=== PATIENT | male | born 1965 | race Caucasian/White ===

== ENCOUNTER → 2018-03-24 | Outpatient (CLI) | payer OTHER | END | disposition home or self-care (01) | LOC: PCVCIMAG 13:03 | DX: I27.20 Pulmonary hypertension, unspecified (principal); I44.7 Left bundle-branch block, unspecified; R06.09 Other forms of dyspnea; R53.83 Other fatigue; E78.5 Hyperlipidemia, unspecified | CPT/HCPCS: 93306 ==